=== PATIENT | male | born 1960 | race Caucasian/White ===

== ENCOUNTER → 2018-06-06 | Outpatient (CLI) | payer BC ==
[~2018-06-06] MED LIST: ASPI1TAB83 PO; ATOR-24 PO; EZET10TA47 PO; KETO10TA PO; LANS15CA15 PO; METO25TA56 PO; MULT-506 PO; NTRGSL/4 UT; OXYC-57 PO; TRAM-10 PO; TRIATAB3 PO
--- NOTE | 2018-06-06 10:38 | DIAGNOSTIC IMAGING REPORT ---
CHEST 2 VIEWS ROUTINE CLINICAL HISTORY: PAT preoperative evaluation COMPARISON STUDY: 10/29/2013 FINDINGS: Prior median sternotomy. Lungs are clear. Diaphragms smooth. IMPRESSION: No acute process. The above report was generated using voice recognition software. It may contain grammatical, syntax or spelling errors. Electronically signed by: Mike Wilson M.D. 06/06/2018 10:36 AM Dictated Date/Time: 06/06/2018 10:35 AM
[2018-06-06 11:03] LABS: BASO % 0.4 %; BASO ABS # 0.03 K/uL (0-0.2); EOS % 3.6 %; EOS ABS # 0.28 K/uL (0-0.5); HEMATOCRIT 46.9 % (42-52); HEMOGLOBIN 16.6 g/dL (14.0-18.0); IG# 0.02 K/uL (0.00-0.02); LYMPH % 23.5 %; LYMPH ABS # 1.84 K/uL (1.2-3.4); MEAN CELL VOLUME 89.3 fL (80-100); MEAN CORPUSCULAR HEMOGLOBIN 31.6 pg (25-34); MEAN CORPUSCULAR HGB CONC 35.4 g/dl (32-36); MEAN PLATELET VOLUME 9.9 fL (7.4-10.4); MONO % 6.1 %; MONO ABS # 0.48 K/uL (0.11-0.59); NEUT % 66.1 %; NEUT ABS # 5.18 K/uL (1.4-6.5); PLATELET COUNT 163 K/uL (130-400); RED CELL DISTRIBUTION WIDTH CV 14.1 % (11.5-14.5); RED CELL DISTRIBUTION WIDTH SD 46.1 fL (36.4-46.3); WHITE BLOOD COUNT 7.83 K/uL (4.8-10.8)
[2018-06-06 11:13] LABS: BLOOD UREA NITROGEN 14 mg/dl (7-18); CALCIUM 8.6 mg/dl (8.5-10.1); CARBON DIOXIDE 29 mmol/L (21-32); CREATININE 1.02 mg/dl (0.60-1.40); GLUCOSE 213 mg/dl (70-99); POTASSIUM 3.8 mmol/L (3.5-5.1); SODIUM 134 mmol/L (136-145)
== END | disposition home or self-care (01) ==
LOC: C.CPL 07:15
PROVIDERS: ATTEND Orthopaedic Surgery
DX: S43.086A Other dislocation of unspecified shoulder joint, initial encounter (principal); X58.XXXA Exposure to other specified factors, initial encounter; Z01.812 Encounter for preprocedural laboratory examination; Z01.810 Encounter for preprocedural cardiovascular examination

== ENCOUNTER → 2018-06-08 | Day surgery (SDC) | payer BC ==
[2018-06-05 08:49] VITALS: BMI 26.0
[2018-06-06 09:49] VITALS: Ht 172.7 cm; Wt 83.4 kg
--- NOTE | 2018-06-06 10:12 | PAT Medication Instructions ---
Service Date Jun 06, 2018. Current Home Medication List Aspirin (Aspirin), 1 TAB PO QAM Atorvastatin (Lipitor), 80 MG PO HS Ezetimibe (Zetia), 10 MG PO HS Lansoprazole (Prevacid), 15 MG PO QAM Metoprolol Tartrate (Lopressor) (Lopressor), 25 MG PO BID Multivitamin (Multivitamin), 1 TAB PO QAM Nitroglycerin (Nitrostat), 0.4 MG UT PRN Tramadol (Ultram), 50 MG PO Q4H PRN for Pain Triamterene/Hctz (Triamterene/Hctz 37.5-25MG), 1 TAB PO QAM Medication Instructions For Your Scheduled Surgery -Continue as needed for chest pain: Nitroglycerin (Nitrostat), 0.4 MG UT PRN - Hold the following medications the morning of surgery: Multivitamin (Multivitamin), 1 TAB PO QAM Triamterene/Hctz (Triamterene/Hctz 37.5-25MG), 1 TAB PO QAM - Take the following medications the morning of surgery with a sip of water: Aspirin (Aspirin), 1 TAB PO QAM Lansoprazole (Prevacid), 15 MG PO QAM Metoprolol Tartrate (Lopressor) (Lopressor), 25 MG PO BID Tramadol (Ultram), 50 MG PO Q4H PRN for Pain (if needed, may be taken up to four hours before surgery) - Take the following medications as scheduled the night before surgery: Atorvastatin (Lipitor), 80 MG PO HS Ezetimibe (Zetia), 10 MG PO HS Metoprolol Tartrate (Lopressor) (Lopressor), 25 MG PO BID Tramadol (Ultram), 50 MG PO Q4H PRN for Pain (if needed) If you have any questions please call us at [phone] or [phone] or [phone]
[~2018-06-08] VITALS: Ht 172.7 cm; Wt 83.4 kg
[~2018-06-08] MED LIST changes: +ATROPINE SULFATE 0.1 MG/ML 5ML SYR IV PRN; +BUPIVACAINE 0.25% 30 ML VIAL ONE; +CEFAZOLIN 2000MG IV PUSH 15 ML IV SCH; +DEXAMETHASONE SOD INJ 4 MG/ML VIAL ONE; +EpHEDrine SULFATE 50MG/5ML SYR ONE; +EpINEphrine INJ 1MG/ML AMP 1 MG/ML AMP ONE; +FENTANYL CITRATE INJ 50 MCG/1 ML 2 ML VIAL IV PRN; +FENTANYL CITRATE INJ 50 MCG/1 ML 2 ML VIAL ONE; +KETOROLAC TROMETHAMINE 30 MG/ML VIAL IV. PRN; +LACTATED RINGER'S 1000ML 1,000 ML IV SCH; +LIDOCAINE HCL 2% 2 ML VIAL (20MG/ML) ONE; +MIDAZOLAM HCL 1 MG/ML 2ML VIAL ONE; +ONDANSETRON INJ 2 MG/ML 2 ML VIAL IV PRN; +ONDANSETRON INJ 2 MG/ML 2 ML VIAL ONE; +OXYCODONE/ACETAMINOPHEN 5-325 TAB PO PRN; +PHENYLEPHRINE HCL INJ 10 MG/ML VIAL ONE; +PROPOFOL IV EMULSION 10 MG/ML 20 ML VIAL ONE; +ROPIVACAINE 0.5% 5 MG/ML 30 ML VIAL ONE; +SODIUM CHLORIDE 0.9% 1000ML 1,000 ML IV SCH
--- NOTE | 2018-06-08 08:04 | History & Physical Bridge - SC ---
H&P Re-Evaluation Bridge Note: I have examined the patient, reviewed the History & Physical and in the interval since the performance of the History & Physical I have noted the following changes of clinical significance: No changes noted
--- NOTE | 2018-06-08 11:52 | [facility] Post Operative Brief Note ---
Immediate Operative Summary Operative Date Jun 08, 2018. Pre-Operative Diagnosis RIGHT SHOULDER FULL THICKNESS ROTATOR CUFF TEAR Post-Operative Diagnosis SAME PREOP Procedure(s) Performed Right Shoulder Arthroscopy With Medium Rotator Cuff Repair WITH EXTENSIVE DEBRIDEMENT Surgeon DR. Nelson ALMANZA Environmental Compliance Manager Surgeon(s) ELIS VELEZ PA-C Estimated Blood Loss 5 ML Findings Consistent with Post-Op Diagnosis Specimens none Anesthesia Type General [facility]
--- NOTE | 2018-06-08 12:07 | Discharge Instructions-SurgCtr ---
Discharge Instructions Date of Service Jun 08, 2018. Visit Reason for Visit: Right Shoulder Full Thickness Rotator Cuff Tear Discharge Discharge Diagnosis / Problem: SAME ABOVE Discharge Goals Goal(s): Decrease discomfort, Improve function Activity Recommendations Activity Limitations: as noted below Lifting Limitations: until after follow-up appointment Exercise/Sports Limitations: until after follow-up appointment Anesthesia . Post Anesthesia Instructions: If you have had General Anesthesia or IV Sedation: * Do not drive today. * Resume driving when surgeon permits. * Do not make important decisions or sign legal documents today. * Call surgeon for: 1. Temperature elevations greater than 101 degrees F. 2. Uncontrollable pain. 3. Excessive bleeding. 4. Persistent nausea and vomiting. 5. Medication intolerance (nausea, vomiting or rash). * For nausea and vomiting use only clear liquids such as: tea, soda, bouillon until nausea subsides, then gradually increase diet as tolerated. * If you have any concerns or questions, call your surgeon's office. If physician is unavailable and it is an emergency, call 911 or go to the nearest emergency room. . Instructions / Follow-Up Instructions / Follow-Up MEDICATIONS: * Resume previous medications unless instructed otherwise by your surgeon. * Always take pain medication on a full stomach or with food to avoid upset stomach. * Do not drink alcohol or drive while taking narcotics. * Ibuprofen or Tylenol may be taken if narcotic not needed. SPECIAL CARE INSTRUCTIONS: __ None _X_ Keep extremity elevated and iced x 48 hours; apply ice 20-30 minutes 8-10 times/day. May remove at night. __ Sling __24 hrs/day __ Remove at night _X_ Shoulder Immobilizer (MAY REMOVE AFTER 48 HOURS ONLY TO SHOWER) _X_ 24 hrs/day __ Remove at night _X_ Dressing __ Maintain until seen in office, may shower with plastic over site _X_ Remove dressings in 24-48 hours and then may shower _X_ Cover incisions with band-aids after showering __ Do not remove steri-strips Call physician if chills or temperature rises above 102 degrees or pain unrelieved by prescribed pain medications at . . Diet Recommendations Home Diet: no limitations Fluid Restriction: None Procedures Procedures Performed: Right Shoulder Arthroscopy With Medium Rotator Cuff Repair WITH EXTENSIVE DEBRIDEMENT Pending Studies Studies pending at discharge: no Work Instructions Return To Work: after follow-up Lifting Limitations: NO LIFTING WITH RIGHT ARM Medical Emergencies . Who to Call and When: Medical Emergencies: If at any time you feel your situation is an emergency, please call 911 immediately. . Non-Emergent Contact Non-Emergency issues call your: Surgeon Call Non-Emergent contact if: your pain is not controlled, wound has increased drainage, wound has increased redness . . "Provider Documentation" section prepared by Saeed Packer. .
--- NOTE | 2018-06-08 12:35 | Anesthesia Progress Nt - [facility] ---
Anesthesia Post Op Note Date & Time Jun 08, 2018 at 12:35 Vital Signs Pain Intensity: 0 Vital Signs Past 12 Hours Date Time Temp Pulse Resp B/P (MAP) Pulse Ox O2 Delivery O2 Flow Rate FiO2 06/08/18 12:26 36.1 92 Room Air 06/08/18 12:21 136/85 06/08/18 12:19 87 19 91 06/08/18 12:19 87 19 06/08/18 12:17 138/73 06/08/18 12:14 88 28 97 06/08/18 12:14 89 28 06/08/18 12:13 72 18 96 06/08/18 12:13 72 18 06/08/18 12:11 136/88 06/08/18 12:08 78 22 98 06/08/18 12:08 77 22 06/08/18 12:06 159/90 06/08/18 12:05 36.3 97 16 159/90 96 Mask 7 06/08/18 10:18 70 21 97 06/08/18 10:18 71 06/08/18 10:17 70 21 98 06/08/18 10:17 71 06/08/18 10:17 70 21 98 06/08/18 10:17 71 06/08/18 10:16 117/82 06/08/18 10:16 117/82 06/08/18 10:12 67 25 99 06/08/18 10:12 66 06/08/18 10:12 67 25 99 06/08/18 10:12 66 06/08/18 10:11 65 06/08/18 10:11 66 0 143/96 96 06/08/18 10:06 63 0 95 06/08/18 10:06 60 06/08/18 10:03 127/90 06/08/18 10:01 56 0 96 06/08/18 10:01 56 06/08/18 09:56 66 06/08/18 09:56 65 0 95 06/08/18 09:51 72 06/08/18 09:51 69 0 95 06/08/18 09:46 61 0 94 06/08/18 09:46 62 06/08/18 09:41 62 0 94 06/08/18 09:41 63 06/08/18 09:36 57 0 95 06/08/18 09:36 55 06/08/18 09:31 57 06/08/18 09:31 56 0 94 06/08/18 09:26 59 06/08/18 09:26 63 0 95 06/08/18 09:21 64 06/08/18 09:21 64 0 96 06/08/18 09:16 64 06/08/18 09:16 64 0 96 06/08/18 08:26 36.5 69 18 142/95 (111) 96 Room Air Notes Mental Status: alert / awake / arousable, participated in evaluation Pt Amnestic to Procedure: Yes Nausea / Vomiting: adequately controlled Pain: adequately controlled Airway Patency, RR, SpO2: stable & adequate BP & HR: stable & adequate Hydration State: stable & adequate Anesthetic Complications: no major complications apparent
[2018-06-08 12:41] VITALS: TEMP 36.2
[2018-06-08 13:16] VITALS: BP 127/81; PULSE 89; O2SAT 94
--- NOTE | 2018-06-08 14:38 | OPERATIVE REPORT ---
DATE OF OPERATION: 06/08/2018 PREOPERATIVE DIAGNOSES: Recurrent rotator cuff tear and anterior instability of the right shoulder. POSTOPERATIVE DIAGNOSES: Recurrent rotator cuff tear and anterior instability of the right shoulder. PROCEDURE: Right shoulder diagnostic arthroscopy with extensive debridement of rotator cuff repair. SURGEON: Dr. Mj Ashraf. SKID WORKER: Saeed Packer PA-C, whose assistance was necessary for positioning the arm and help with instrumentation and closure. ANESTHESIA: General with a right interscalene nerve block. COMPLICATIONS: None. CONDITION: Stable to PACU. INDICATIONS: Bryan is a pleasant 58-year-old male who I did an open anterior superior rotator cuff repair on several years ago. He did very well postoperatively. Unfortunately, a couple weeks ago, he fell hard, dislocated his right shoulder. MRI showed a retear of the supraspinatus. The subscapularis looked intact. Unfortunately, he had another dislocation a couple weeks later and elected to undergo arthroscopic fixation. OPERATION AND FINDINGS: On 06/08/2018, he arrived at [facility] for the above procedure. He was seen in the preoperative holding area and the operative extremity was identified and signed. He was given a preoperative antibiotic and a right interscalene nerve block. He was taken back to the operating room, laid on the table in supine position and put under general anesthesia. He was then put into the beachchair position. The right shoulder was prepped and draped in sterile fashion. Time-out was done and the patient's operative extremity was properly identified. A scope was introduced in the posterior portal. Diagnostic arthroscopy showed some minor grade 1 chondral changes on the humeral head. There were no bony defects of the glenoid. There was a Hill-Sachs lesion almost in the superior aspect of the humeral head. The subscapularis was intact. There was a tear in the entire supraspinatus and it seemed to go up the anterior interval. The infraspinatus and teres minor were intact. An anterior portal was made. A shaver was used to do a debridement of some of the intra-articular structures to better define the anatomy. Multiple pictures were taken. The scope was then brought into the subacromial space. A lateral portal was made. A shaver was used to do a complete subacromial and subdeltoid bursectomy. An additional anterolateral portal was made and Sakina cannulas were placed in each lateral portals. The greater tuberosity was prepared with a ring curette and a microfracture. The rotator cuff was then repaired with an Arthrex SpeedBridge configuration using 4.75 mm BioComposite SwiveLock suture anchors and FiberTapes. This gave a nice knotless SpeedBridge repair. An additional suture was placed in the very lateral rotator interval. This seemed to close up very nicely without compromising much external rotation. I did want to tighten him up just a little bit. The scope was placed back into the glenohumeral joint. The articular margin of the rotator cuff has been restored. The anterior inferior labrum was examined. It was mostly absent and there was no good soft tissue to even consider repair. I think given his age and given the rotator cuff repair, I think that will solve his instability problems as well. The arthroscopic instruments were removed from the shoulder. Portal sites were closed with 3-0 nylon. He was then placed in a soft dressing and abduction arm sling. He was then extubated, transferred to a [facility] and taken to postanesthesia care unit in stable condition. He tolerated the procedure well. I attest to the content of the Intraoperative Record and any orders documented therein. Any exception s are noted below.
== END | disposition home or self-care (01) ==
LOC: X.SURG 07:59
PROVIDERS: ATTEND Orthopaedic Surgery
DX: S46.011A Strain of muscle(s) and tendon(s) of the rotator cuff of right shoulder, initial encounter (principal); M25.311 Other instability, right shoulder; I25.2 Old myocardial infarction; Z95.1 Presence of aortocoronary bypass graft; W19.XXXA Unspecified fall, initial encounter; Z79.899 Other long term (current) drug therapy; I25.10 Atherosclerotic heart disease of native coronary artery without angina pectoris; E78.5 Hyperlipidemia, unspecified; K21.9 Gastro-esophageal reflux disease without esophagitis; M19.90 Unspecified osteoarthritis, unspecified site; F17.200 Nicotine dependence, unspecified, uncomplicated; Z79.82 Long term (current) use of aspirin

== ENCOUNTER 2021-06-12 09:00 | Observation (INO) ==
--- NOTE | 2021-05-27 08:28 | PAT Medication Instructions ---
Medication Instructions Date of Service May 27, 2021 Home Medications aspirin 81 mg tablet,delayed release (Adult Low Dose Aspirin) 81 mg PO QAM atorvastatin 80 mg tablet 80 mg PO QAM ezetimibe 10 mg tablet 10 mg PO QAM lansoprazole 15 mg capsule,delayed release (Prevacid) 15 mg PO QAM lisinopril 2.5 mg tablet 2.5 mg PO QAM metformin 500 mg tablet 500 mg PO HS metoprolol succinate 25 mg tablet,extended release 24 hr 25 mg PO HS ticagrelor 90 mg tablet 90 mg PO BID varenicline 1 mg tablet (Chantix) 1 mg PO QAM sertraline 50 mg tablet (Zoloft) 50 mg PO QAM ASK your prescriber and surgeon aspirin 81 mg tablet,delayed release (Adult Low Dose Aspirin) 81 mg PO QAM ticagrelor 90 mg tablet 90 mg PO BID DO NOT take the morning of surgery lisinopril 2.5 mg tablet 2.5 mg PO QAM varenicline 1 mg tablet (Chantix) 1 mg PO QAM Take morning of surgery With a small sip of water, OTHERWISE NOTHING TO EAT OR DRINK AFTER MIDNIGHT: atorvastatin 80 mg tablet 80 mg PO QAM ezetimibe 10 mg tablet 10 mg PO QAM lansoprazole 15 mg capsule,delayed release (Prevacid) 15 mg PO QAM sertraline 50 mg tablet (Zoloft) 50 mg PO QAM Take evening before surgery metformin 500 mg tablet 500 mg PO HS metoprolol succinate 25 mg tablet,extended release 24 hr 25 mg PO HS Other Notes If you have any questions please call us at [phone] or [phone] or [phone] or [phone]
--- NOTE | 2021-05-29 10:32 | Anesthesiology Consultation ---
Date of Service May 29, 2021 Assessment & Plan (1) Encounter for pre-operative examination: - COVID screening: Per assessment on 05/29: Travel screen- returned from travel to [place], [place] (vacation via place). Patient vaccinated. Preop COVID t esting will be > 5 days after return from travel. No known COVID-19 positive contacts or current COVID-19 related symptoms. Surgeon arranging preop COVID testing. Awaiting results. - Cardiology office visit (05/25/21): "stable.. pt denies need for any cardiac workup as directed by his surgeon.. ok for pt to hold anticoagulation as instructed prior to L shoulder replacement" - ASA/Ticagrelor instructions: per surgeon/cardiology - Check BSG AM DOS - Post-op reaction: Post-op shoulder surgeries had hives 3-4 days (was given antihistamine/benadryl). - Not Outpatient joint pathway candidate: Per booking sheet/patient, surgeon was requesting being done through outpatient joint pathway if possible. Case reviewed with Dr. Huddleston. In light of cardiac history, he does not feel that patient is appropriate candidate for outpatient joint pathway. Surgeon's office and patient made aware. Chart Review Chart Review: Acceptable Risk for Surgery and Patient seen in Pre Admission Testing Teaching & Discussion Pre-Anesthesia Teaching/Discussion Notes: Instructed NPO after midnight before surgery,except medications with 15 cc of water. Medication instructions p rovided according to the PAT guidelines. History Surgery Operation Date: 06/12/21 10:40 Proposed Procedures p Left Reverse Total Shoulder Arthroplasty - Mj Ashraf, DO Height/Weight Height: 5 ft 8 in Weight: 78.8 kg Allergies Allergy/AdvReac Type Severity Reaction Status Date / Time No Known Allergies Allergy Verified 05/26/21 10:45 Medications Home Medications Medication Instructions Recorded Confirmed Last Taken aspirin 81 mg tablet,delayed 81 mg PO QAM 03/18/21 05/26/21 Unknown release (Adult Low Dose Aspirin) atorvastatin 80 mg tablet 80 mg PO QPM 03/18/21 05/29/21 Unknown ezetimibe 10 mg tablet 10 mg PO QPM 03/18/21 05/29/21 Unknown lansoprazole 15 mg capsule,delayed 15 mg PO QAM 03/18/21 05/26/21 Unknown release (Prevacid) lisinopril 2.5 mg tablet 2.5 mg PO QAM 03/18/21 05/26/21 Unknown metformin 500 mg tablet 500 mg PO BID 03/18/21 05/29/21 Unknown metoprolol succinate 25 mg 25 mg PO BID 03/18/21 05/29/21 Unknown tablet,extended release 24 hr ticagrelor 90 mg tablet 90 mg PO BID 03/18/21 05/26/21 Unknown sertraline 50 mg tablet (Zoloft) 50 mg PO QAM 05/26/21 05/26/21 Unknown Past Medical History Medical History Anxiety CAD (coronary artery disease) 2005 > no stents, CABG x3 01/2020 ([facility] in [place]) > stents x2 (PCI to SVG-PDA with VERA and BMS) Diabetes mellitus NIDDM GERD (gastroesophageal reflux disease) History of myocardial infarction CABG x2 (2005)- follows with [facility] HLD (hyperlipidemia) HTN (hypertension) Exercise / Class Metabolic Activity II 4-5 Yardwork/Stairs/Walk up hill Past Family History Family History Father Diabetes Heart disease Other No family history of adverse response to anesthesia Past Surgical History Surgical History History of arthroscopy of right shoulder x2 History of colonoscopy History of coronary artery bypass graft x 3 CABG x2 (2005) History of tooth extraction all teeth removed S/P cardiac catheterization 2005 > no stents, CABG x3 01/2020 ([facility] in [place]) > stents x2 (PCI to SVG-PDA with VERA and BMS) Past Anesthesia History No Family Hx of Anesthesia Complications and Other (post-op shoulder surgeries had hives 3-4 days (was given antihistamine/benadryl)) History of PONV No Hx of PONV and No Hx of Motion Sickness Social History Smoking Status: Current every day smoker tobacco type: cigarettes Smoking cigarettes per day: < 4 cigs/day (tobacco use x 40 years) Do You Dip or Chew Tobacco: No Hx Alcohol Use: Yes Alcohol type: beer alcohol intake frequency: a few times a week Hx Substance Use: No substance use type: does not use Review of Systems Patient denies chest pain, shortness of breath, dyspnea on exertion, fever, chills, cough, wheezing, palpitations. Physical Exam Vital Signs VITALS BP 130/81 P 57 TEMP SP02 97%RA RESP 16 PHYSICAL Full cervical extension range of motion. Full TMJ range of motion. TMD 3.5 finger breaths Mallampati Score 3 Dentition: full plate on upper, edentulous Lungs: clear throughout to auscultation Cardiac: regular rate and rhythm, no murmurs noted Spine: normal Carotid arteries: negative bruit Extremities: no edema Lab Results Anesthesia Preop Results Results Anesthesia Widget: WBC 6.69 K/uL (4.8-10.8) 05/29/21 Hgb 15.7 g/dL (14.0-18.0) 05/29/21 Hct 46.6 % (42-52) 05/29/21 Plt 216 K/uL (130-400) 05/29/21 PT 10.4 Seconds (9.0-12.0) 05/29/21 PTT 26.2 Seconds (21.0-31.0) 05/29/21 INR 1.0 (0.9-1.1) 05/29/21 Blood Type A Positive 05/29/21 Antibody Screen NEGATIVE 05/29/21 Testing Laboratory Results 05/27/21 SODIUM 135 POTASSIUM 4.8 CHLORIDE 100 CO2 29 BUN 16 CREATININE 0.9 GLUCOSE 135 HGBA1C 6.9% Electrocardiogram Date: 05/29/21 Findings: + SB @ (53) Chest X-Ray Date: 05/29/21 FINDINGS: Lung volumes are normal. Lungs are clear. There is no pneumothorax or pleural effusion. Cardiac size is normal. Mediastinal contours are normal. There is no evidence for pulmonary edema. Median sternotomy wires are noted. IMPRESSION: No acute cardiopulmonary findings. Stress Test Date: 01/04/20 Type: exercise The stress test positive for inducible ischemia at 80% MPHR. There is a moderate sized apical, anterior septal, anterior and lateral wall motion abnormality with hypokinesis of the segments. Stress EKG shows 2 mm horizontal/downsloping ST depression in inferior lateral leads positive for inducible ischemia. Inadequate cardiovascular stress test as patient obtained only 80% of the age-predicted maximal target heart rate. 7 METS. EF 50 to 54%. Patient subsequently had cardiac cath 01/08/2020 with 2 stents placed. Cardiac Catheterization Date: 01/08/20 Prior bypass graft disease and ectatic friable vessel with heavy thrombus burden. 2 stents were placed.
--- NOTE | 2021-06-11 07:17 | History & Physical Report ---
Date of Service June 11, 2021 Assessment & Plan (1) Left rotator cuff tear: We will proceed with a left reverse shoulder arthroplasty. Postoperatively he will be placed in a sling and kept overnight in the hospital for postoperative medical management. He plans to go to [facility] in [place] upon discharge. History of Present Illness Chief Complaint: Cuff arthropathy of the left shoulder. Primary Care Provider: Yaneli Sanon DO Adams is a pleasant 61-year-old male who I did a right medium rotator cuff repair on 2018. He did very well with that. 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 I diagnosed him with a large left rotator cuff tear and sent for an MRI. MRI showed a tear of the entire supraspinatus and infraspinatus retracted back to the level of the glenoid. There is severe atrophy of the supraspinatus muscle belly and tear of the upper half of the subscapularis with medial subluxation of the long head of the biceps tendon. We talked extensively about the risks and benefits of a superior capsular reconstruction versus a reverse shoulder arthroplasty. He did not want in this much time from work and wanted to reliably regain forward elevation. He elected to proceed with a left reverse shoulder arthroplasty.. Allergies Allergy/AdvReac Type Severity Reaction Status Date / Time No Known Allergies Allergy Verified 05/26/21 10:45 Home Medications Medication Instructions Recorded Confirmed Type aspirin 81 mg tablet,delayed 81 mg PO QAM 03/18/21 05/26/21 History release (Adult Low Dose Aspirin) atorvastatin 80 mg tablet 80 mg PO QPM 03/18/21 05/29/21 History ezetimibe 10 mg tablet 10 mg PO QPM 03/18/21 05/29/21 History lansoprazole 15 mg capsule,delayed 15 mg PO QAM 03/18/21 05/26/21 History release (Prevacid) lisinopril 2.5 mg tablet 2.5 mg PO QAM 03/18/21 05/26/21 History metformin 500 mg tablet 500 mg PO BID 03/18/21 05/29/21 History metoprolol succinate 25 mg 25 mg PO BID 03/18/21 05/29/21 History tablet,extended release 24 hr ticagrelor 90 mg tablet 90 mg PO BID 03/18/21 05/26/21 History sertraline 50 mg tablet (Zoloft) 50 mg PO QAM 05/26/21 05/26/21 History oxycodone 5 mg tablet 5 mg PO Q6 PRN #30 tab 06/10/21 Rx Past Med/Surg History Medical History Anxiety CAD (coronary artery disease) 2005 > no stents, CABG x3 01/2020 ([facility] in [place], [place]) > stents x2 (PCI to SVG-PDA with VERA and BMS) Diabetes mellitus NIDDM GERD (gastroesophageal reflux disease) History of myocardial infarction CABG x2 (2005)- follows with [facility] HLD (hyperlipidemia) HTN (hypertension) Surgical History History of arthroscopy of right shoulder x2 History of colonoscopy History of coronary artery bypass graft x 3 CABG x2 (2005) History of tooth extraction all teeth removed S/P cardiac catheterization 2005 > no stents, CABG x3 01/2020 ([facility] in [place], [place]) > stents x2 (PCI to SVG-PDA with VERA and BMS) Family History Father Diabetes Heart disease Other No family history of adverse response to anesthesia Social History Smoking Status: Current every day smoker Cigarettes Per Day: < 4 cigs/day (tobacco use x 40 years); Second Hand Exposure: No; Hx Alcohol Use: Yes Alcohol type: beer Alcohol Intake Frequency: 2-3 x/Week Hx Substance Use: No Preferred Language: Barbadian Communication Ability: Effective Drum Cleaner Required: No Beliefs That Will Affect Care: None marital status: Current Living Situation: Spouse current occupational status: employed current occupation: laborer plumbing--[employer] How many Children do You have: 0 Feels Safe at Home: Yes Do you think of yourself as: straight/heterosexual Gender Identity: Male Assistive Devices: Denture - Upper and Glasses Review of Systems All systems reviewed & are unremarkable except as noted in HPI & below. Physical Exam On physical examination of his left shoulder, he has about 110 degrees of forward elevation 30 degrees of external rotation he has 4 out of 5 motor strength with full can testing and external rotation. He has pain in the subacromial space.. Constitutional WD/WN, vitals as above Eyes PERRL, conjunctivae normal, anicteric sclerae ENMT external ear and nose normal, oropharynx normal Neck trachea midline, no thyromegaly Respiratory normal respiratory effort Cardiovascular RRR, no murmur, no edema Gastrointestinal (Abdomen) normal bowel sounds, soft, nontender, no hepatosplenomegaly Psychiatric A+Ox3, euthymic affect Results & Data Results & Data Laboratory Results . Diagnostic Findings X-rays of the left shoulder show little to no arthritis of the humeral head. MRI of the shoulder shows a massive retracted rotator cuff tear with severe atrophy of the supraspinatus muscle bellies and medial subluxation of the long head of the biceps tendon with tearing of the subscapularis.. PG Care Time/CCT Total # of Minutes Spent Total Time Spent with Patient: Total time spent is greater than 50% in coordination of care (as documented) at patient's floor/unit and/or counseling patient: Coding Level of Care Code None Diagnoses Left rotator cuff tear M75.102
[~2021-06-12 09:00] MED LIST changes: +ACETAMINOPHEN 500 MG TAB PO SCH; -ASPI1TAB83 PO; -ATOR-24 PO; -ATROPINE SULFATE 0.1 MG/ML 5ML SYR IV PRN; -BUPIVACAINE 0.25% 30 ML VIAL ONE; +BUPIVACAINE 0.5 % 5 MG/1 ML PF 10ML VIAL ONE; -CEFAZOLIN 2000MG IV PUSH 15 ML IV SCH; -DEXAMETHASONE SOD INJ 4 MG/ML VIAL ONE; -EZET10TA47 PO; -EpHEDrine SULFATE 50MG/5ML SYR ONE; -EpINEphrine INJ 1MG/ML AMP 1 MG/ML AMP ONE; +FAMOTIDINE 20 MG TAB PO SCH; -FENTANYL CITRATE INJ 50 MCG/1 ML 2 ML VIAL IV PRN; -FENTANYL CITRATE INJ 50 MCG/1 ML 2 ML VIAL ONE; +GABAPENTIN 600 MG DOSE PO SCH; -KETO10TA PO; -KETOROLAC TROMETHAMINE 30 MG/ML VIAL IV. PRN; -LACTATED RINGER'S 1000ML 1,000 ML IV SCH; -LANS15CA15 PO; -LIDOCAINE HCL 2% 2 ML VIAL (20MG/ML) ONE; +LR 15ML/HR IV SCH; +LR 60ML/HR IV SCH; -METO25TA56 PO; -MIDAZOLAM HCL 1 MG/ML 2ML VIAL ONE; -MULT-506 PO; -NTRGSL/4 UT; -ONDANSETRON INJ 2 MG/ML 2 ML VIAL IV PRN; -ONDANSETRON INJ 2 MG/ML 2 ML VIAL ONE; -OXYC-57 PO; -OXYCODONE/ACETAMINOPHEN 5-325 TAB PO PRN; -PHENYLEPHRINE HCL INJ 10 MG/ML VIAL ONE; -PROPOFOL IV EMULSION 10 MG/ML 20 ML VIAL ONE; -ROPIVACAINE 0.5% 5 MG/ML 30 ML VIAL ONE; +ROPIVACAINE 0.5% HCL/PF 150 MG, BUPIVACAINE 0.75% MPF 20 ML, EPINEPHrine 30MG/30ML (OR ... INFIL SCH; -SODIUM CHLORIDE 0.9% 1000ML 1,000 ML IV SCH; -TRAM-10 PO; +TRANEXAMIC ACID 1,000 MG **IV Intra-op IV SCH; +TRANEXAMIC ACID 1,000 MG **IV Pre-op IV SCH; -TRIATAB3 PO; +ceFAZolin 1000MG 1,000 MG/7.5 ML SYR IV SCH; +dexAMETHasone 4 MG TAB PO SCH
--- NOTE | 2021-06-12 09:13 | History & Physical Bridge Note ---
Date of Service June 12, 2021 History & Physical Bridge Note I have examined the patient, reviewed the History & Physical and in the interval since the performance of the History & Physical I have noted the following changes of clinical significance: no changes noted
[2021-06-12] MEDS ORDERED: MIDAZOLAM HCL 1 MG/ML 2ML VIAL ONE (10:35)
[2021-06-12] MEDS ORDERED: fentaNYL citrate 100 MCG/2 ML VIAL ONE (10:35)
[2021-06-12] MEDS ORDERED: ORTHO JOINT ANESTHETIC ONE (11:09)
[2021-06-12] MEDS ORDERED: ePHEDrine sulfate 50 MG/ML AMP IV PRN (11:29)
[2021-06-12] MEDS ORDERED: fentaNYL citrate 100 MCG/2 ML VIAL IV PRN (11:29)
[2021-06-12] MEDS ORDERED: ATROPINE SULFATE 0.1 MG/ML 10ML SYR IV PRN (11:29)
[2021-06-12] MEDS ORDERED: ONDANSETRON INJ 2 MG/ML 2 ML VIAL IV PRN ×2 (11:29→15:01)
[2021-06-12] MEDS ORDERED: PHENYLEPHRINE 100MCG/ML 5ML SYR ONE (12:32)
[2021-06-12] MEDS ORDERED: DEXAMETHASONE SOD INJ 4 MG/ML VIAL ONE (12:32)
[2021-06-12] MEDS ORDERED: PROPOFOL IV EMULSION 10 MG/ML 20 ML VIAL IV ONE (12:32)
[2021-06-12] MEDS ORDERED: ROCURONIUM BROMIDE 10 MG/ML 5 ML VIAL IV ONE (12:32)
[2021-06-12] MEDS ORDERED: GLYCOPYRROLATE 0.2 MG/ML VIAL ONE (12:32)
[2021-06-12] MEDS ORDERED: NEOSTIGMINE METHYLSULFATE 1 MG/ML 10ML VIAL ONE (12:32)
[2021-06-12] MEDS ORDERED: LIDOCAINE 2% 2 ML VIAL/AMP(20MG/ML) INFIL ONE (12:32)
[2021-06-12] MEDS ORDERED: ONDANSETRON INJ 2 MG/ML 2 ML VIAL ONE (12:32)
[2021-06-12] MEDS ORDERED: LARYING-O-JET KIT (LTA) ONE (12:32)
--- NOTE | 2021-06-12 13:29 | Operative Report ---
PG Post Operative Report Pre & Post Diagnosis Operation Date: 06/12/21 11:50 Pre-Op Diagnosis: Cuff tear arthropathy of the left shoulder Post-Op Diagnosis: Cuff tear arthropathy of the left shoulder I identified the patient and participated in the time-out.: Yes Procedure Operation Date: 06/12/21 11:50 Actual Procedures p Left Reverse Total Shoulder Arthroplasty with open biceps tenodesis as a distinct and separate procedure (modifier 59) (Left) - Mj Ashraf DO Surgeon Mj Ashraf DO Orchestra Director Mj Jon PAC Estimated Blood Loss 200 Findings Consistent with Post-Op Diagnosis Specimens Left humeral head Complications none Disposition Disposition: Recovery Room Indications Bryan is a pleasant 61-year-old male who is been dealing with chronic left shoulder pain. MRI and clinical examination were diagnostic for chronic retracted rotator cuff tear. We discussed the differences between superior capsular reconstruction and reverse shoulder arthroplasty. After extensive discussions in the office, he elected proceed with a left reverse shoulder arthroplasty. Description of Procedure A CPT code modifier 59: The long head of the biceps tendon was enlarged and inflamed consistent with tendinopathy. A tenodesis was opted. This was a separate and distinct portion of the procedure. For these reasons, a CPT code modifier 59 will be added to this case. Implants used: I used a [employer] Comprehensive reverse total shoulder arthroplasty system with a size 10 press fit micro humeral stem, a standard humeral tray and a standard humeral bearing, a 25 mm small augment baseplate with a 6.5 mm central screw and superior and inferior locking screws, and a size 40 mm eccentric glenosphere. Bryan arrived at [facility] for the above procedure. He was seen in the preoperative holding area and the operative extremity was identified and signed. He was given a preoperative antibiotic, TXA, and an interscalene nerve block. He was taken back to the operating room, laid on table in supine position, and put under general anesthesia. He was then put into the beachchair position. The shoulder was then prepped and draped in sterile fashion. A timeout was done and the patient and the operative extremity was properly identified. A deltopectoral approach was used. Dissection was taken down through the fascia and the deltoid was retracted laterally and the conjoined tendon was retracted medially. The anterior shoulder was exposed. The biceps groove was opened up and the biceps tendon was examined extensively. The biceps tendon demonstrated enlargement and inflammatory changes consistent with longstanding inflammation in the context of osteoarthritis and cuff arthropathy. The long head of the biceps tendon was then tenodesed to the upper border of the pectoralis major. This was a separate and distinct portion of the procedure. The subscapularis was then directly released off the lesser tuberosity with a peel technique. The inferior capsule was released and the humeral head was dislocated. A canal finding reamer was sent down the center of the humeral canal. Sequential reaming up to a size 10 reamer was done. Off that reamer, a proximal humeral resection guide was placed. The proximal humerus was resected at 135 of inclination and 25 of retroversion. Osteophytes were then removed and the glenoid was exposed. Time was spent doing a complete capsular and labral release. The glenoid guide was then placed in the inferior aspect of the glenoid. A 3.2 mm Steinmann pin was then placed into the glenoid vault at 10 of inclination. The glenoid baseplate was then reamed. The final size 25 mm small augment baseplate was then impacted in the place. A 6.5 mm central screw was then placed followed by superior and inferior locking screws. A 40 mm eccentric glenosphere was then impacted into place. Surrounding soft tissues were then injected with 100 cc an orthopedic pain control cocktail. The proximal humerus was then exposed. Sequential broaching of the humerus up to a size 10 broach was done. Off that broach a standard humeral tray was trialed. The shoulder was then reduced, brought through a full range of motion, and felt to be stable. The shoulder was then dislocated and the broach was removed. The final size 10 micro press-fit humeral stem was then impacted into place. A standard humeral bearing was then snapped onto a standard humeral tray. The humeral tray was then impacted onto the humeral stem. The shoulder was once again reduced, brought through a full range of motion, and felt to be stable. The subscapularis was then tenodesed back to the lesser tuberosity with transosseous FiberWire sutures and side to side sutures with the arm in 45 of external rotation. A dilute betadyne lavage was then done for 3 minutes. The joint was then irrigated with normal saline solution. Hemostasis was obtained. The interval was closed with 2-0 Vicryl suture. The skin was then closed with 2-0 Vicryl and glenys. A Silverlon dressing was placed and the arm was rested in a regular arm sling. He was then extubated and transferred to a hospital bed. He taken to the postanesthesia care unit in stable condition. He tolerated the procedure well. Mj Jon PA-C, was present for the entire procedure. He was critical for patient positioning, prepping, draping, retraction exposure, wound closure and application of sterile dressing. I attest to the content of the Intraoperative Record and any orders documented therein. Any exceptions are noted below.
--- NOTE | 2021-06-12 14:18 | XRay Report ---
XR shoulder LT min 2V routine CLINICAL HISTORY: Post shoulder surgery COMPARISON: MRI of the left shoulder April 15, 2021. Left shoulder radiographs September 17, 2020. FINDINGS: Alignment of the reverse total left shoulder arthroplasty is anatomic. There is no peripro sthetic fracture or unexpected radiopaque foreign body. There are skin glenys. IMPRESSION: Expected findings following total left shoulder arthroplasty. ACT 112: Negative or not required by law. Electronically signed by: Mason Hwang M.D. 06/12/2021 2:17 PM
[2021-06-12] MEDS ORDERED: MAGNESIUM HYDROXIDE SUSP 30 ML UDC PO PRN (15:01)
[2021-06-12] MEDS ORDERED: METOCLOPRAMIDE HCL INJ 5 MG/ML 2 ML VIAL IV PRN (15:01)
[2021-06-12] MEDS ORDERED: HYDROmorphone INJ 0.5 MG/0.5 ML SYR IV PRN (15:01)
[2021-06-12] MEDS ORDERED: PHARMACY GLYCEMIC MGMT CONSULT PRN (15:01)
[2021-06-12] MEDS ORDERED: NALOXONE HCL 0.4 MG/1 ML VIAL/CARP IV PRN (15:01)
[2021-06-12] MEDS ORDERED: bisacodyL 10 MG SUPP PR PRN (15:01)
[2021-06-12] MEDS ORDERED: SODIUM CHLORIDE 0.9% 1000ML 1,000 ML IV SCH (15:01)
[2021-06-12] MEDS ORDERED: oxyCODONE HCL IR 5 MG TAB (IMMEDIATE RELEASE) PO PRN (15:01)
[2021-06-12] MEDS: KETOROLAC 30 MG/ML VIAL IV SCH ×2 (16:44→21:17)
[2021-06-12] MEDS: INSULIN ASPART 100 UNITS/ML 3 ML PEN SC SCH ×2 (18:25→21:07)
[2021-06-12] MEDS ORDERED: GLUCOSE 40% GEL 15 GM TUBE PO PRN (19:30)
[2021-06-12] MEDS ORDERED: GLUCAGON FOR INJ 1 MG VIAL IM PRN (19:30)
[2021-06-12] MEDS ORDERED: CARBOHYDRATES FOR HYPOGLYCEMIA PO PRN (19:30)
[2021-06-12] MEDS ORDERED: DEXTROSE 50% 50 ML SYRINGE IV PRN (19:30)
[2021-06-12] MEDS ORDERED: GLUCOSE 10 TABS/TUBE PO PRN (19:30)
[2021-06-12] MEDS: DOCUSATE SODIUM 100 MG CAP PO SCH (20:01)
[2021-06-12] MEDS: METOPROLOL SUCC 25MG EXT REL TAB PO SCH (20:02)
[2021-06-12] MEDS: TICAGRELOR 90 MG TAB PO SCH (20:03)
[2021-06-12] MEDS: ceFAZolin 2000MG 2,000 MG/15 ML SYR IV SCH (20:09)
[2021-06-12] MEDS ORDERED: SENNA 8.6 MG TAB PO SCH (21:00)
[2021-06-12] MEDS ORDERED: ATORVASTATIN 40 MG TAB PO SCH (21:00)
[2021-06-12] MEDS ORDERED: EZETIMIBE 10 MG TABLET PO SCH (21:00)
[2021-06-12] MEDS ORDERED: LANTUS PER UNIT CHARGE SQ ONE (21:00)
[2021-06-12] MEDS: ACETAMINOPHEN 500 MG TAB PO SCH (21:17)
[2021-06-13] MEDS: INSULIN ASPART 100 UNITS/ML 3 ML PEN SC SCH ×3 (00:10→09:42)
[2021-06-13] MEDS: ACETAMINOPHEN 500 MG TAB PO SCH (03:56)
[2021-06-13] MEDS: ceFAZolin 2000MG 2,000 MG/15 ML SYR IV SCH (03:56)
[2021-06-13] MEDS: KETOROLAC 30 MG/ML VIAL IV SCH ×2 (03:56→09:42)
[2021-06-13 06:45] LABS: Estimated Average Glucose 148 mg/dl; Hemoglobin A1C 6.8 % (4.5-5.6)
[2021-06-13] MEDS ORDERED: hydroCHLOROthiazide 25 MG TAB PO SCH (09:00)
[2021-06-13] MEDS ORDERED: PANTOprazole 40 MG TAB PO SCH (09:00)
[2021-06-13] MEDS ORDERED: SERTRALINE HCL 50 MG TABLET PO SCH (09:00)
[2021-06-13] MEDS ORDERED: lisinopril 2.5 MG TAB PO SCH (09:00)
[2021-06-13] MEDS ORDERED: ASPIRIN 81 MG ECTAB PO SCH (09:00)
[2021-06-13] MEDS ORDERED: MULTIVITAMIN TAB PO SCH (09:00)
--- NOTE | 2021-06-13 09:11 | Orthopedic Progress Note ---
Date of Service June 13, 2021 Assessment & Plan (1) Status post reverse total replacement of left shoulder: Cleared for discharge today Follow-up as outpatient as scheduled with Dr. Ashraf Subjective Reports no issues. He preferred to avoid narcotics because of previous hive formation 3 days after surgery. He wanted to try some high-dose Motrin. Review of Systems All systems reviewed & are unremarkable except as noted in HPI & below. Physical Exam Left shoulder: Dressings clean dry and intact. He does have some active motor to his hand. Results & Data Results & Data Laboratory Results . Diagnostic Findings . PG Care Time/CCT Total # of Minutes Spent Total Time Spent with Patient: Total time spent is greater than 50% in coordination of care (as documented) at patient's floor/unit and/or counseling patient: Coding Level of Care Code 75405 Post Operative Follow-Up Diagnoses Status post reverse total replacement of left shoulder Z96.612
--- NOTE | 2021-06-13 09:34 | Pharmacy Report ---
Pharmacy Glycemic Short Note 2 - Date of Service June 13, 2021 - Glycemic Short BSG Results (Last 24 hours): 06/12/21 06/12/21 06/12/21 09:17 12:02 13:51 POC Glucose 130 H 132 H 154 H 06/12/21 06/12/21 06/13/21 17:18 20:35 00:09 POC Glucose 285 H 297 H 140 H 06/13/21 06/13/21 03:52 08:13 POC Glucose 139 H 143 H OUTPATIENT ANTIDIABETIC REGIMEN: * Metformin XR 500 mg PO BIDM * HbA1c = 6.8% (01/02/21) ASSESSMENT: * 61 yo M admitted yesterday s/p left total should arthroplasty. Pharmacy was consulted postoperatively to assist with inpatient glycemic management. * Received 8 mg of IV dexamethasone perioperatively. Postoperative BSGs were elevated secondary to this: 285-290 mg/dL. * Started on basal bolus insulin regimen both based on a weight and stress of two. * Fasting BSG was 143 mg/dL this AM * Slightly above goal but acceptable. * No changes necessary to regimen. * Patient likely to be discharged today. PLAN FOR INPATIENT GLYCEMIC CONTROL: * Hold outpatient oral diabetes medications * Basal insulin * Lantus 13 units SC x 1 * Bolus insulin * NovoLog per scale ACHS or Q6hrs while NPO * Goal Range: Low 110 mg/dL - High 140 mg/dL * Correction Factor: 25 mg/dL/unit * Nutritional / Prandial insulin per carb ratio of 1 unit per 9 grams CHO consumed PLAN FOR DISCHARGE: * HbA1c is at goal for this patient. Resume Metformin XR upon discharge.
[2021-06-13] MEDS: TICAGRELOR 90 MG TAB PO SCH (09:38)
[2021-06-13] MEDS: DOCUSATE SODIUM 100 MG CAP PO SCH (09:39)
[2021-06-13] MEDS: METOPROLOL SUCC 25MG EXT REL TAB PO SCH (09:39)
--- NOTE | 2021-06-15 14:14 | Discharge Summary ---
Date of Service June 15, 2021 Admission HPI (Per Admitting) Bryan is a pleasant 61-year-old male who I did a right medium rotator cuff repair on 2018. He did very well with that. 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 I diagnosed him with a large left rotator cuff tear and sent for an MRI. MRI showed a tear of the entire supraspinatus and infraspinatus retracted back to the level of the glenoid. There is severe atrophy of the supraspinatus muscle belly and tear of the upper half of the subscapularis with medial subluxation of the long head of the biceps tendon. We talked extensively about the risks and benefits of a superior capsular reconstruction versus a reverse shoulder arthroplasty. He did not want in this much time from work and wanted to reliably regain forward elevation. He elected to proceed with a left reverse shoulder arthroplasty.. Admission Exam (Per Admitting) On physical examination of his left shoulder, he has about 110 degrees of forward elevation 30 degrees of external rotation he has 4 out of 5 motor strength with full can testing and external rotation. He has pain in the subacromial space.. Principal Diagnosis Same as "Discharge Diagnosis" noted below under Discharge Instructions. Discharge Exam Left shoulder: Dressings clean dry and intact. He does have some active motor to his hand. Discharge Data Procedures Performed Operation Date: 06/12/21 11:50 Actual Procedures p Left Reverse Total Shoulder Arthroplasty(Left) - Mj Ashraf DO Ordered Studies 06/12/21 05:00 US - OR guided needle placemen Routine Hospital Course (1) Status post reverse total replacement of left shoulder: On June 12, 2021 Luna arrived at [facility] and underwent a left reverse shoulder replacement without complication. He had a general anesthetic and a left interscalene nerve block. Postoperatively he was placed in an arm sling and transferred to the general orthopedic floors. His hospital course was uneventful. On postop day #1 his vital signs were stable and his pain was well controlled. He was able to participate well with physical therapy doing ambulation and range of motion exercises. He was then discharged home. He will follow-up with orthopedics in 2 weeks. PG Care Time/CCT Total # of Minutes Spent Total Time Spent with Patient: Total time spent is greater than 50% in coordination of care (as documented) at patient's floor/unit and/or counseling patient: Discharge Plan Discharge Items Patient Disposition: Home - Self-Care Reason For Visit: DJD Left Shoulder Discharge Diagnosis: Left reverse shoulder replacement Activity: As commented below Non-emergency contact: Surgeon Call non-emergency contact if: your wound has increased redness and your wound has increased drainage Follow-up/Referrals: Yaneli Sanon-DO Keesha [Primary Care Provider] - Mj Ashraf DO [Physician] - Diet: Regular Addtl Attending Provider Instructions: Activity and Therapy Recommendations: * If you are using [facility] then therapy will be provided at your home until they feel you have accomplished all of your goals. * If you are using [facility] then Physical Therapy will be provided until they feel you are ready to start Outpatient Physical Therapy. * If you are not using home therapy then Outpatient Physical Therapy should start about 3-5 days from your day of surgery. Therapy will last about 8-12 weeks * Wear your sling for 3 weeks, unless otherwise instructed. You may remove your sling to shower and to dress, but otherwise, you should be in your sling at all times, including while sleeping * The shoulder replacement is very stable and you can use your hand while in the sling * You were shown a series of exercises in the hospital. Do these exercises daily including the exercises you were shown in physical therapy. Medications: * Narcotic You will likely be sent home from the hospital with a prescription for the narcotic pain medication that worked best throughout your stay. * Other medications may be prescribed for specific circumstances. If you have any questions, please call the office at . * Resume previous home medications unless otherwise instructed Dressing Care: Leave the Silverlon dressing in place for 7 days. After 7 days you may remove the dressing. If the incision is not draining then you may leave the glenys open to air. If there is a little bit of drainage or if the glenys are getting stuck on your clothing then cover the incision with a dry dressing. The glenys will be removed at your 2 week follow-up appointment. Showering: You may shower with the Silverlon dressing in place. Do not let the shower spray hit the dressing directly. Pat the Silverlon dressing dry. If the dressing becomes wet underneath, then simply remove the dressing. Keep the incision dry until you are 7 days out from the day of surgery. After 7 days you may remove the Silverlon dressing and shower with the glenys exposed. Let soapy water run over the glenys and pat them dry. Do not scrub or soak the incision. Things To Watch For: * Drainage from the incision site that occurs more than one week after your surgery. * Increased redness at the incision site. * Fever above 102 degrees Fahrenheit. * Unusual chest pain or shortness of breath. * Call [facility] at with any of the above problems Follow-Up Visit: Follow-up with Dr. Ashraf's PA (Mj Jon) 2-3 weeks after your day of surgery. He will remove your glenys and answer any questions. If you have any additional questions or concerns, Dr Ashraf is usually in the office at the same time and will be available An appointment was probably scheduled when you signed-up for surgery in the office. If you have any questions call More detailed instructions as well as Frequently Asked Questions were provided in a folder by our office when you signed-up for surgery. Please review these instructions when you get home. If you have any further questions or concerns, please feel free to call the office at [phone] Pending Studies at Discharge: No Stand-Alone Forms: [facility], Smoking Cessation Medications and DC Order Prescriptions: New ibuprofen 800 mg tablet 800 mg PO Q8H PRN (Reason: pain) Qty: 60 RF: 0 Continued oxycodone 5 mg tablet 5 mg PO Q6 PRN (Reason: pain) Qty: 30 RF: 0 aspirin [Adult Low Dose Aspirin] 81 mg tablet,delayed release (DR/EC) 81 mg PO QAM RF: 0 atorvastatin 80 mg tablet 80 mg PO QPM RF: 0 ezetimibe 10 mg tablet 10 mg PO QPM RF: 0 lansoprazole [Prevacid] 15 mg capsule,delayed release(DR/EC) 15 mg PO QAM RF: 0 metoprolol succinate 25 mg tablet extended release 24 hr 25 mg PO BID RF: 0 lisinopril 2.5 mg tablet 2.5 mg PO QAM RF: 0 metformin 500 mg tablet 500 mg PO BID RF: 0 ticagrelor 90 mg tablet 90 mg PO BID RF: 0 sertraline [Zoloft] 50 mg tablet 50 mg PO QAM RF: 0 hydrochlorothiazide 12.5 mg Capsule 12.5 mg PO DAILY RF: 0 Discharge Orders: Discharge Order (Routine); Ordered 06/13/21 Ordered By: Tushar Valdez/Other Patient Handouts: Long-Term Complications of Diabetes, High Blood Sugar (Hyperglycemia), Hypoglycemia (Low Blood Sugar), Resources for People with Diabetes, Diabetes Treating Minor Foot ... Admission Data Admit Date/Time: 06/12/21 13:51 Attending Provider: Mj Ashraf Admit Provider: Mj Ashraf Primary Care Provider: Yaneli Sanon Other Interventions: Discharge Summary Assessment (RN) Last Done: 06/13/21 09:13
== END 2021-06-13 10:28 | disposition home or self-care (01) ==
LOC: 3N 09:00 → ASU 09:00